=== PATIENT | female | born 1960 | race Caucasian/White ===

== ENCOUNTER 2021-10-02 20:38 | Emergency (ER) | payer MEDICAID ==
[~2021-10-02] VITALS: Ht 152.4 cm; Wt 100.0 kg
[2021-10-02 21:04] VITALS: BP 181/97
[2021-10-02] MEDS ORDERED: SUMAtriptan 25 MG tablet PO ONE (22:40)
[2021-10-02] MEDS ORDERED: acetaminophen 325mg tablet PO ONE (22:40)
[2021-10-02] MEDS ORDERED: ALBU8.5H17 INH (22:46)
== END 2021-10-02 22:58 | disposition home or self-care (01) ==
LOC: ER 20:39
DX: G43.909 Migraine, unspecified, not intractable, without status migrainosus (principal); I10 Essential (primary) hypertension; J45.909 Unspecified asthma, uncomplicated; E03.9 Hypothyroidism, unspecified; Z88.0 Allergy status to penicillin
CPT/HCPCS: 99283

== ENCOUNTER 2022-06-19 13:03 | Emergency (ER) | payer MEDICAID ==
[~2022-06-19] VITALS: Ht 152.4 cm; Wt 100.0 kg
[~2022-06-19 13:03] MED LIST: ALBU8.5H17 INH
[2022-06-19 13:08] VITALS: BP 159/68
[2022-06-19] MEDS ORDERED: ondansetron 4mg rapidly disintigrating tab PO ONE ×2 (13:40→14:35)
[2022-06-19] MEDS ORDERED: morphine 4 MG/ML inj SYRINge IM ONE (13:40)
[2022-06-19] MEDS ORDERED: oxyCODONE/APAP 10/325mg tablet PO ONE (14:35)
[2022-06-19] MEDS ORDERED: HYDR-3965 PO (14:41)
[2022-06-19] MEDS ORDERED: ONDA4TAB12 PO (14:41)
== END 2022-06-19 15:07 | disposition home or self-care (01) ==
LOC: ER 13:03
DX: S80.01XA Contusion of right knee, initial encounter (principal); I10 Essential (primary) hypertension; J45.909 Unspecified asthma, uncomplicated; E03.9 Hypothyroidism, unspecified; F32.9 Major depressive disorder, single episode, unspecified; Z88.0 Allergy status to penicillin; Z88.2 Allergy status to sulfonamides; Z79.899 Other long term (current) drug therapy; W18.39XA Other fall on same level, initial encounter; Y93.89 Activity, other specified; Y92.89 Other specified places as the place of occurrence of the external cause; Y99.8 Other external cause status
CPT/HCPCS: 73564; 96372; 99284; J2270; A6449

== ENCOUNTER 2022-06-27 18:02 | Emergency (ER) | payer MEDICAID ==
[~2022-06-27] VITALS: Ht 152.4 cm; Wt 100.0 kg
[~2022-06-27 18:02] MED LIST changes: +ONDA4TAB12 PO
[2022-06-27 18:15] VITALS: BP 165/96
[2022-06-27] MEDS ORDERED: IBUP-1985 PO (19:13)
[2022-06-27] MEDS ORDERED: OXYC-145 PO (19:13)
== END 2022-06-27 19:46 | disposition home or self-care (01) ==
LOC: ER 18:03
DX: S80.11XA Contusion of right lower leg, initial encounter (principal); M25.561 Pain in right knee; I10 Essential (primary) hypertension; J45.909 Unspecified asthma, uncomplicated; Z88.0 Allergy status to penicillin; Z88.2 Allergy status to sulfonamides; W18.40XA Slipping, tripping and stumbling without falling, unspecified, initial encounter; Y93.89 Activity, other specified; Y92.89 Other specified places as the place of occurrence of the external cause; Y99.8 Other external cause status
CPT/HCPCS: 29505; 99283

== ENCOUNTER 2023-07-16 19:41 | Emergency (ER) | payer MEDICAID ==
[~2023-07-16] VITALS: Ht 152.4 cm; Wt 100.0 kg
[~2023-07-16 19:41] MED LIST changes: +IBUP-1985 PO; +ONDA-243 PO; -ONDA4TAB12 PO; +OXYC-145 PO
[2023-07-16 20:53] LABS: BASOPHILS # (AUTO) 0.1 X10'3 (0-0.2); BASOPHILS % (AUTO) 0.4 % (0-1); EOSINOPHILS # (AUTO) 0.3 X10'3 (0-0.9); EOSINOPHILS % (AUTO) 1.9 % (0-6); HEMATOCRIT 40.5 % (35.0-45.0); HEMOGLOBIN 13.5 g/dl (12.0-16.0); LYMPHOCYTES # (AUTO) 2.6 X10'3 (1.1-4.8); LYMPHOCYTES % (AUTO) 18.9 % (21-51); MEAN CORPUSCULAR HEMOGLOBIN 26.8 PG (27.0-31.0); MEAN CORPUSCULAR HGB CONC 33.3 g/dL (33.0-36.5); MEAN CORPUSCULAR VOLUME 80.3 FL (78-98); MEAN PLATELET VOLUME 8.7 FL (7.4-10.4); MONOCYTES # (AUTO) 1.4 X10'3 (0-0.9); MONOCYTES % (AUTO) 10.2 % (2-12); NEUTROPHILS # (AUTO) 9.4 X10'3 (1.8-7.7); NEUTROPHILS % (AUTO) 68.6 % (42-75); PLATELET COUNT 373 X10'3 (140-440); RED BLOOD COUNT 5.04 X10'6 (4.20-5.60); RED CELL DISTRIBUTION WIDTH 15.5 % (11.5-14.5); WHITE BLOOD COUNT 13.7 X10'3 (4.5-11.0)
[2023-07-16 21:15] LABS: ALBUMIN 3.5 G/DL (3.4-5.0); ANION GAP 8 (8-16); BLOOD UREA NITROGEN 36 MG/DL (7-18); BUN/CREATININE RATIO 25.7 (10.0-20.0); CALCIUM 8.7 MG/DL (8.5-10.1); CHLORIDE 101 MMOL/L (99-107); GLUCOSE 106 MG/DL (70-104); POTASSIUM 4.1 MMOL/L (3.5-5.1); PRO BRAIN NATRIURETIC PEPTIDE 70 PG/ML (0-125); SODIUM 136 MMOL/L (135-145); TOTAL CARBON DIOXIDE 26.9 MMOL/L (24-32); eCRCL 30 ML/MIN; eGFR 38 ML/MIN
[2023-07-17] MEDS: normal saline 1000ml 1,000 ML IV ONE (00:16)
[2023-07-17 01:11] LABS: BILIRUBIN,URINE SMALL (Neg); CLARITY,URINE CLEAR (Clear); GLUCOSE, URINE NEGATIVE (Neg); KETONES,URINE NEGATIVE (Neg); LEUKOCYTE ESTERASE ,URINE TRACE (Neg); NITRITES, URINE NEGATIVE (Neg); OCCULT BLOOD,URINE NEGATIVE (Neg); PH,URINE 5.5 (4.8-8.0); PROTEIN,URINE NEGATIVE (Neg); UROBILINOGEN,URINE 0.2 E.U/dL (0.2-1.0)
[2023-07-17 01:12] LABS: COLOR,URINE DARK YELLOW (Yellow); UA COLLECTION TYPE NON-SPECIFIED
[2023-07-17 01:23] LABS: SQUAMOUS EPITHELIAL CELL,UR FEW /LPF (FEW)
[2023-07-17 01:24] LABS: MUCUS STRANDS NONE SEEN /LPF (Neg)
[2023-07-17 01:25] LABS: BACTERIA,URINE 4+ /HPF (Neg); RBC,URINE 0-2 /HPF (0-2)
[2023-07-17 02:00] VITALS: BP 125/66; PULSE 75; RESP 16; TEMP 98.2; O2SAT 98
[2023-07-17] MEDS: CefTRIAXone/D5W-Rocephin 1gm 50 ML IV SCH (02:10)
[2023-07-17] MEDS ORDERED: CEPH-585 PO (02:38)
== END 2023-07-17 03:03 | disposition home or self-care (01) ==
LOC: ER 19:42
DX: N39.0 Urinary tract infection, site not specified (principal); E86.0 Dehydration; I10 Essential (primary) hypertension; J45.909 Unspecified asthma, uncomplicated; E03.9 Hypothyroidism, unspecified; F32.A Depression, unspecified; Z88.0 Allergy status to penicillin; Z88.8 Allergy status to other drugs, medicaments and biological substances
CPT/HCPCS: 36415; 71045; 80048; 81001; 83880; 84484; 85025; 93005; 96361; 96365; 99285; J0696; J7030

== ENCOUNTER 2024-01-16 20:23 | Emergency (ER) | payer MEDICAID ==
[~2024-01-16] VITALS: Ht 152.4 cm; Wt 100.0 kg
[2024-01-16 20:33] VITALS: BP 178/82; PULSE 67; RESP 16; TEMP 97.7; O2SAT 97
== END 2024-01-16 22:06 | disposition home or self-care (01) ==
LOC: ER 20:23
DX: S60.031A Contusion of right middle finger without damage to nail, initial encounter (principal); I10 Essential (primary) hypertension; J45.909 Unspecified asthma, uncomplicated; E03.9 Hypothyroidism, unspecified; F32.A Depression, unspecified; Z88.0 Allergy status to penicillin; Z88.2 Allergy status to sulfonamides; Z79.1 Long term (current) use of non-steroidal anti-inflammatories (NSAID); Z79.899 Other long term (current) drug therapy; W23.0XXA Caught, crushed, jammed, or pinched between moving objects, initial encounter; Y93.89 Activity, other specified; Y92.89 Other specified places as the place of occurrence of the external cause; Y99.8 Other external cause status
CPT/HCPCS: 73140; 96360; 99283

== ENCOUNTER 2024-02-23 11:08 | Outpatient (CLI) | payer MEDICAID | END 2024-02-23 23:59 | disposition home or self-care (01) | LOC: MRI02 11:08 | PROVIDERS: ATTEND Pediatrics Sports Medicine | DX: M94.262 Chondromalacia, left knee (principal); M25.462 Effusion, left knee; M25.562 Pain in left knee | CPT/HCPCS: 73721 ==

== ENCOUNTER 2024-05-12 18:59 | Emergency (ER) | payer MEDICAID ==
[~2024-05-12] VITALS: Ht 152.4 cm; Wt 102.5 kg
[2024-05-12 19:01] VITALS: BP 137/80; PULSE 99; RESP 16; TEMP 98.3; O2SAT 97
[2024-05-12] MEDS: ibuprofen tablet 400 MG TABLET PO ONE (20:36)
== END 2024-05-12 20:55 | disposition home or self-care (01) ==
LOC: ER 18:59
DX: S91.311A Laceration without foreign body, right foot, initial encounter (principal); I10 Essential (primary) hypertension; J45.909 Unspecified asthma, uncomplicated; E03.9 Hypothyroidism, unspecified; Z88.0 Allergy status to penicillin; Z88.2 Allergy status to sulfonamides; Z79.1 Long term (current) use of non-steroidal anti-inflammatories (NSAID); Z79.899 Other long term (current) drug therapy; W22.8XXA Striking against or struck by other objects, initial encounter; Y93.E1 Activity, personal bathing and showering; Y92.89 Other specified places as the place of occurrence of the external cause; Y99.8 Other external cause status
CPT/HCPCS: 73630; 99283; A6258

== ENCOUNTER 2024-05-30 20:55 | Emergency (ER) | payer MEDICAID ==
[~2024-05-30] VITALS: Ht 152.4 cm; Wt 100.1 kg
[2024-05-30 20:58] VITALS: TEMP 96.7
[2024-05-30 21:30] LABS: BASOPHILS # (AUTO) 0.1 X10'3 (0-0.2); BASOPHILS % (AUTO) 0.9 % (0-1); EOSINOPHILS # (AUTO) 0.1 X10'3 (0-0.9); EOSINOPHILS % (AUTO) 0.7 % (0-6); HEMATOCRIT 44.4 % (35.0-45.0); HEMOGLOBIN 14.7 g/dl (12.0-16.0); LYMPHOCYTES # (AUTO) 2.3 X10'3 (1.1-4.8); LYMPHOCYTES % (AUTO) 16.3 % (21-51); MEAN CORPUSCULAR HEMOGLOBIN 27.6 PG (27.0-31.0); MEAN CORPUSCULAR HGB CONC 33.2 g/dL (33.0-36.5); MEAN CORPUSCULAR VOLUME 83.1 FL (78-98); MEAN PLATELET VOLUME 8.4 FL (7.4-10.4); MONOCYTES # (AUTO) 1.3 X10'3 (0-0.9); MONOCYTES % (AUTO) 9.4 % (2-12); NEUTROPHILS # (AUTO) 10.2 X10'3 (1.8-7.7); NEUTROPHILS % (AUTO) 72.7 % (42-75); PLATELET COUNT 326 X10'3 (140-440); RED BLOOD COUNT 5.34 X10'6 (4.20-5.60); RED CELL DISTRIBUTION WIDTH 16.7 % (11.5-14.5)
[2024-05-30 21:43] LABS: ALANINE AMINOTRANSFERASE 17 U/L (12-78); ALBUMIN 3.7 G/DL (3.4-5.0); ALBUMIN/GLOBULIN RATIO 0.9 (1.1-1.5); ALKALINE PHOSPHATASE 83 IU/L (46-116); ANION GAP 8 (8-16); ASPARTATE AMINO TRANSFERASE 17 U/L (10-37); BILIRUBIN,TOTAL 1.1 MG/DL (0.1-1.0); BLOOD UREA NITROGEN 17 MG/DL (7-18); BUN/CREATININE RATIO 16.2 (10.0-20.0); CALCIUM 8.6 MG/DL (8.5-10.1); CHLORIDE 107 MMOL/L (99-107); CREATININE 1.05 MG/DL (0.40-0.90); GLUCOSE 112 MG/DL (70-104); POTASSIUM 3.7 MMOL/L (3.5-5.1); SODIUM 141 MMOL/L (135-145); TOTAL CARBON DIOXIDE 25.8 MMOL/L (24-32); TOTAL PROTEIN 7.7 G/DL (6.4-8.2); eCRCL 39 ML/MIN; eGFR 53 ML/MIN
[2024-05-30 21:50] LABS: PRO BRAIN NATRIURETIC PEPTIDE 166 PG/ML (0-125)
[2024-05-31] MEDS: famotidine 20mg tablet PO ONE (04:12)
[2024-05-31] MEDS: ondansetron 4mg rapidly disintigrating tab PO ONE (04:12)
[2024-05-31] MEDS: mag hydrox/Alum hydrox/simeth 30ml oral suspension PO ONE (04:13)
[2024-05-31] MEDS: LIDOcaine 2% Viscous 15ml cup MM ONE (04:13)
[2024-05-31 04:47] VITALS: BP 142/80; PULSE 64; RESP 18; O2SAT 95
== END 2024-05-31 04:49 | disposition home or self-care (01) ==
LOC: ER 20:55
DX: R07.89 Other chest pain (principal); K21.9 Gastro-esophageal reflux disease without esophagitis; E03.9 Hypothyroidism, unspecified; I10 Essential (primary) hypertension; F32.A Depression, unspecified; J45.909 Unspecified asthma, uncomplicated; Z88.2 Allergy status to sulfonamides; Z88.0 Allergy status to penicillin; Z79.1 Long term (current) use of non-steroidal anti-inflammatories (NSAID); Z79.899 Other long term (current) drug therapy
CPT/HCPCS: 36415; 71045; 80053; 83880; 84484; 85025; 93005; 99285

== ENCOUNTER 2024-09-26 13:37 | Outpatient (CLI) | payer MEDICAID ==
--- NOTE | 2024-09-26 14:55 | RADIOLOGY REPORT ---
Exam: US ULTRASOUND HEAD NECK Clinical History: LYMPHEDEMA, NOT ELSEWHERE CLASSIFIED Comparison: None Technique: Targeted sonographic evaluation of the soft tissues of the bilateral neck was obtained utilizing gra yscale and color Doppler imaging. Findings/Impression: Multiple bilateral level 1 , 2 and 3 lymph nodes most of which appear morphologically benign and jovan ure less than 1 cm in short axis. Findings are nonspecific and may be reactive. Clinical correlation advised.
== END 2024-09-26 23:59 | disposition home or self-care (01) ==
LOC: RAD 13:37
PROVIDERS: ATTEND Nurse Practitioner Occupational Health
DX: I89.0 Lymphedema, not elsewhere classified (principal)
CPT/HCPCS: 76536